=== PATIENT | male | born 1950 | race Caucasian/White ===

== ENCOUNTER 2017-08-29 06:50 | Day surgery (SDC) | payer MEDICARE, OTHER ==
[~2017-08-29 06:50] MED LIST: Lactated Ringers 1,000 ML IV SCH; Lidocaine 1%/Sod Bicarbonate in NS 8.4% 1 ML Syringe IV PRN; Sodium Chloride 0.9% 10 ML Syringe FLUSH PRN
[2017-08-29] MEDS ORDERED: Propofol 200 MG/20 ML SDV ONE ×2 (07:02→08:41)
[2017-08-29] MEDS ORDERED: Lidocaine 1% 4 ML ONE (07:02)
--- NOTE | 2017-08-29 07:20 | PCM.PREANE ---
Preanesthetic Assessment - Procedure Proposed Procedure: Diagnostic colonoscopy - Anesthesia/Transfusion/Family Hx Anesthesia History: Prior Anesthesia Without Reaction Family History of Anesthesia Reaction: No Transfusion History: No Prior Transfusion(s) - Review of Systems General: No Symptoms Pulmonary: Shortness of Breath Cardiovascular: Other (HTN, HLD) Gastrointestinal: No Symptoms Neurological: Numbness (to left shoulder to arm- told it was arthritis ) Other: Reports: Easy Bruising, Liver Problems (elevated liver enzymes (maybe from simvastatin is what he was told)) - Physical Assessment NPO Status Date: 08/28/17 NPO Status Time: 23:30 Pulse: 70 O2 Sat by Pulse Oximetry: 95 Respiratory Rate: 16 Blood Pressure: 139/95 Temperature: 36.9 C Height: 1.7 m Weight: 77.564 kg ASA Class: 2 Mental Status: Alert & Oriented x3 Dentition: Reports: Normal Dentition Thyro-Mental Finger Breadths: 3 Mouth Opening Finger Breadths: 3 ROM/Head Extension: Full Lungs: Clear to Auscultation, Normal Respiratory Effort Cardiovascular: Regular Rate, Regular Rhythm - Allergies Allergies/Adverse Reactions: Allergies Allergy/AdvReac Type Severity Reaction Status Date / Time No Known Allergies Allergy Verified 08/28/17 14:32 - Blood Blood Available: No Product(s) Available: None - Anesthesia Plan Pre-Op Medication Ordered: None - Acknowledgements Anesthesia Type Planned: MAC Pt an Appropriate Candidate for the Planned Anesthesia: Yes Alternatives and Risks of Anesthesia Discussed w Pt/Guardian: Yes Pt/Guardian Understands and Agrees with Anesthesia Plan: Yes PreAnesthesia Questionnaire HEENT History: Reports: Allergic Rhinitis Cardiovascular History: Reports: High Cholesterol, Hypertension Respiratory History: Reports: None Gastrointestinal History: Reports: Hemorrhoids Genitourinary History: Reports: Other (See Below) Other Genitourinary History: BPH UX DESIGNER History: Reports: None Musculoskeletal History: Reports: Arthritis Neurological History: Reports: None Psychiatric History: Reports: None Endocrine/Metabolic History: Reports: Vitamin D Deficiency Hematologic History: Reports: None Immunologic History: Reports: None Oncologic (Cancer) History: Reports: None Dermatologic History: Reports: Other (See Below) Other Dermatologic History: lipoma - Past Surgical History Head Surgeries/Procedures: Reports: None HEENT Surgical History: Reports: Cataract Surgery Cardiovascular Surgical History: Reports: None Respiratory Surgical History: Reports: None GI Surgical History: Reports: Colonoscopy, Hernia, Inguinal Female Surgical History: Reports: None Male Surgical History: Reports: None Endocrine Surgical History: Reports: None Neurological Surgical History: Reports: None Musculoskeletal Surgical History: Reports: Other (See Below) Other Musculoskeletal Surgeries/Procedures:: rotator cuff repair, right carpal tunnel release, r knee meniscus repair Oncologic Surgical History: Reports: None - SUBSTANCE USE Smoking Status *Q: Former Smoker Second Hand Smoke Exposure: No Recreational Drug Use History: No - HOME MEDS Home Medications: Home Meds Albuterol [Proventil HFA] 2 puff INH Q3H PRN 08/28/17 [History] Aspirin [Mckinley Aspirin] 81 mg PO DAILY 08/28/17 [History] Budesonide/Formoterol Fumarate [Symbicort 160-4.5 Mcg Inhaler] 2 puff INH BID [History] Fluticasone Propionate [Flonase] 2 spray NASBOTH DAILY 08/28/17 [History] Lisinopril [Lisinopril] 20 mg PO DAILY 08/28/17 [History] - CURRENT (IN HOUSE) MEDS Current Meds: Current Medications Lactated Ringer's (Ringers, Lactated) 1,000 mls @ 125 mls/hr IV ASDIRECTED AMANDA Lidocaine/Sodium Bicarbonate (Buffered Lidocaine 1% In Ns 8.4%) 0.25 ml IV ONETIME PRN PRN Reason: Prior to IV Start Sodium Chloride (Saline Flush) 10 ml FLUSH ASDIRECTED PRN PRN Reason: Keep Vein Open Discontinued Medications Lidocaine HCl (Xylocaine-Mpf 1%) Confirm Administered Dose 4 mls @ as directed .ROUTE .STK-MED ONE Stop: 08/29/17 07:03 Propofol (Diprivan 20 Ml) Confirm Administered Dose 200 mg .ROUTE .STK-MED ONE Stop: 08/29/17 07:03
--- NOTE | 2017-08-29 08:43 | PCM.OPNOTE ---
- General Post-Op/Procedure Note Date of Surgery/Procedure: 08/29/17 Operative Procedure(s): Colonoscopy Findings: Normal colonoscopic evaluation Pre Op Diagnosis: History of bright red rectal bleeding Post-Op Diagnosis: Normal endoscopy Anesthesia Technique: MAC, Moderate Sedation Primary Surgeon: Valentín Hernandez Pathology: None EBL in mLs: 0 Complications: None Condition: Good Free Text/Narrative:: After adequate IV sedation and analgesia was obtained the patient was placed on his left side. Perianal inspection and digital rectal examination were performed and were unremarkable. The prostate was slightly enlarged but had no nodules. A lubricated colonoscope was inserted into the rectum then advanced to the cecum without difficulty. The bowel preparation was excellent. The cecum ascending colon transverse and descending colons were endoscopically normal with no mass lesions or inflammatory changes seen. The sigmoid and rectum in both views was unremarkable and well. Photographs were taken for the patient for the record. Air was removed as I finished the procedure which he tolerated well.
--- NOTE | 2017-08-29 08:47 | PCM48HPAN ---
Post Anesthesia Note - EVALUATION WITHIN 48HRS OF ANESTHETIC Vital Signs in Normal Range: Yes Patient Participated in Evaluation: Yes Respiratory Function Stable: Yes Airway Patent: Yes Cardiovascular Function Stable: Yes Hydration Status Stable: Yes Pain Control Satisfactory: Yes Nausea and Vomiting Control Satisfactory: Yes Mental Status Recovered: Yes
== END 2017-08-29 09:03 | disposition home or self-care (01) ==
LOC: JD.SDS 06:50
PROVIDERS: ATTEND Surgery
DX: K62.5 Hemorrhage of anus and rectum (principal); M19.90 Unspecified osteoarthritis, unspecified site; I10 Essential (primary) hypertension; N40.0 Benign prostatic hyperplasia without lower urinary tract symptoms; E78.2 Mixed hyperlipidemia; Z86.010 Personal history of colon polyps; Z87.891 Personal history of nicotine dependence; Z79.51 Long term (current) use of inhaled steroids; Z79.82 Long term (current) use of aspirin; Z79.899 Other long term (current) drug therapy; Z98.49 Cataract extraction status, unspecified eye; Z98.890 Other specified postprocedural states
CPT/HCPCS: 45378; J7120; 00810; J2704

== ENCOUNTER 2024-08-26 07:14 | Day surgery (SDC) | payer MEDICARE, OTHER ==
[~2024-08-26 07:14] MED LIST changes: -Lactated Ringers 1,000 ML IV SCH; -Lidocaine 1%/Sod Bicarbonate in NS 8.4% 1 ML Syringe IV PRN; +Sodium Chloride 0.9% 10 ML Syringe FLUSH SCH
[2024-08-26] MEDS: Lactated Ringers 1,000 ML IV SCH (07:45)
[2024-08-26] MEDS ORDERED: Midazolam 1 MG/ML 2 ML SDV ONE (07:51)
[2024-08-26] MEDS ORDERED: fentaNYL 100 MCG/2 ML SDV ONE (07:51)
[2024-08-26] MEDS ORDERED: Propofol 200 MG/20 ML SDV ONE (07:51)
[2024-08-26] MEDS ORDERED: Lidocaine 1% PF 2 ML SDV ONE ×2 (07:52)
[2024-08-26] MEDS ORDERED: Lidocaine 1% 4 ML ONE (07:52)
[2024-08-26] MEDS ORDERED: Phenylephrine 1% 10 MG/ML SDV ONE (08:12)
== END 2024-08-26 09:52 ==
LOC: JD.SDS 07:14
PROVIDERS: ATTEND Surgery
DX: Z12.11 Encounter for screening for malignant neoplasm of colon (principal); D12.2 Benign neoplasm of ascending colon; D12.3 Benign neoplasm of transverse colon; D12.8 Benign neoplasm of rectum; K63.5 Polyp of colon; K64.8 Other hemorrhoids; K57.30 Diverticulosis of large intestine without perforation or abscess without bleeding; I10 Essential (primary) hypertension; E78.2 Mixed hyperlipidemia; Z79.82 Long term (current) use of aspirin; Z79.899 Other long term (current) drug therapy
CPT/HCPCS: 45380; J2250; J2371; J2704; J3010; J7120; 00811; 88305; 99100; J3490